=== PATIENT | male | born 1980 | race Two or more races ===

== ENCOUNTER 2017-02-04 08:22 | Day surgery (SDC) | payer OTHER ==
[~2017-02-04 08:22] MED LIST: Bupivacaine 0.25%/EPINEPHrine 1:200,000 10 ML SDV ONE
[2017-02-04] MEDS ORDERED: Lactated Ringers 1,000 ML IV SCH (09:00)
[2017-02-04] MEDS ORDERED: Propofol 200 MG/20 ML SDV ONE ×2 (09:20→09:21)
[2017-02-04] MEDS ORDERED: Lidocaine 2% 5 ML SDV ONE ×2 (09:20→09:21)
[2017-02-04] MEDS ORDERED: Midazolam 1 MG/ML 2 ML SDV ONE (09:21)
[2017-02-04] MEDS ORDERED: fentaNYL 100 MCG/2 ML SDV ONE (09:21)
[2017-02-04] MEDS ORDERED: Ondansetron 4 MG/2 ML SDV ONE (09:22)
[2017-02-04] MEDS ORDERED: Ketorolac 30 MG/ML SDV ONE (09:22)
--- NOTE | 2017-02-04 09:23 | PCM.PREANE ---
Preanesthetic Assessment - Anesthesia/Transfusion/Family Hx Anesthesia History: Prior Anesthesia Without Reaction Transfusion History: No Prior Transfusion(s) Intubation History: Unknown - Review of Systems General: No Symptoms Pulmonary: No Symptoms Cardiovascular: No Symptoms Gastrointestinal: No Symptoms Neurological: No Symptoms Other: Reports: None - Physical Assessment O2 Sat by Pulse Oximetry: 98 Respiratory Rate: 16 Vital Signs: Last Vital Signs Temp 97.9 F 02/04/17 08:50 Pulse 92 02/04/17 08:50 Resp 16 02/04/17 08:50 BP 133/87 02/04/17 08:50 Pulse Ox 98 02/04/17 08:50 Height: 5 ft 4 in Weight: 170 lb ASA Class: 1 Mental Status: Alert & Oriented x3 Airway Class: Mallampati = 1 Dentition: Reports: Normal Dentition, Bridge (3 tooth frontal upper) Thyro-Mental Finger Breadths: 3 Mouth Opening Finger Breadths: 3 (small mouth) ROM/Head Extension: Full Lungs: Clear to Auscultation, Normal Respiratory Effort Cardiovascular: Regular Rate, Regular Rhythm, No Murmurs - Allergies Allergies/Adverse Reactions: Allergies Allergy/AdvReac Type Severity Reaction Status Date / Time No Known Allergies Allergy Verified 02/03/17 14:44 - Blood Blood Available: No Product(s) Available: None - Acknowledgements Anesthesia Type Planned: General Anesthesia (LMA) Pt an Appropriate Candidate for the Planned Anesthesia: Yes Alternatives and Risks of Anesthesia Discussed w Pt/Guardian: Yes Pt/Guardian Understands and Agrees with Anesthesia Plan: Yes PreAnesthesia Questionnaire Other HEENT History: wears glasses Gastrointestinal History: Reports: None - Past Surgical History GI Surgical History: Reports: Hernia, Inguinal - SUBSTANCE USE Smoking Status *Q: Never Smoker Recreational Drug Use History: No - HOME MEDS Home Medications: Home Meds . [No Known Home Meds] 02/03/17 [History] - CURRENT (IN HOUSE) MEDS Current Meds: Current Medications Hydrocodone Bitart/Acetaminophen (Cypress 325-5 Mg) 1 tab PO Q4H PRN PRN Reason: Pain Bupivacaine HCl/Epinephrine Bitart (Marcaine 0.25%/Epinephrine 1:200,000) 10 ml INJECT ONETIME ONE Stop: 02/04/17 11:01 Cefazolin Sodium/Dextrose 2 gm (/ Premix) 50 mls @ 100 mls/hr IV ONETIME ONE Stop: 02/04/17 11:29 Lactated Ringer's (Ringers, Lactated) 1,000 mls @ 125 mls/hr IV ASDIRECTED [facility] Last Admin: 02/04/17 09:03 Dose: 125 mls/hr Discontinued Medications Bupivacaine HCl/Epinephrine Bitart (Marcaine 0.25%/Epinephrine 1:200,000) Confirm Administered Dose 10 ml .ROUTE .STK-MED ONE Stop: 02/04/17 07:24
[2017-02-04] MEDS ORDERED: ePHEDrine 50 MG/ML SDV ONE (10:26)
[2017-02-04] MEDS ORDERED: HYDROmorphone 2 MG/ML Syringe ONE (10:32)
[2017-02-04] MEDS ORDERED: Bupivacaine 0.25%/EPINEPHrine 1:200,000 10 ML SDV INJECT ONE (11:00)
[2017-02-04] MEDS ORDERED: ceFAZolin 2 GM in Premix Bag 1 BAG IV ONE (11:00)
[2017-02-04] MEDS ORDERED: Acetaminophen/HYDROcodone 325-5 MG Tab PO PRN (11:00)
[2017-02-04] MEDS ORDERED: fentaNYL 100 MCG/2 ML SDV IVPUSH PRN (11:28)
--- NOTE | 2017-02-04 11:54 | PCM.POSTAN ---
POST ANESTHESIA ASSESSMENT - MENTAL STATUS Mental Status: Alert, Oriented - RESPIRATORY Respiratory Status: Respiratory Rate WNL, Airway Patent, O2 Saturation Stable - CARDIOVASCULAR CV Status: Pulse Rate WNL, Blood Pressure Stable - GASTROINTESTINAL GI Status: No Symptoms - POST OP HYDRATION Hydration Status: Adequate & Stable
--- NOTE | 2017-02-04 11:58 | PCM48HPAN ---
Post Anesthesia Note - EVALUATION WITHIN 48HRS OF ANESTHETIC Vital Signs in Normal Range: Yes Patient Participated in Evaluation: Yes Respiratory Function Stable: Yes Airway Patent: Yes Cardiovascular Function Stable: Yes Hydration Status Stable: Yes Pain Control Satisfactory: Yes Nausea and Vomiting Control Satisfactory: Yes Mental Status Recovered: Yes
[2017-02-04 13:32] VITALS: BP 140/89
--- NOTE | 2017-02-07 09:53 | PCM.OPNOTE ---
- General Post-Op/Procedure Note Date of Surgery/Procedure: 02/04/17 Operative Procedure(s): open reduction plate fixation of right index finger middle phalanx fracture, with reconstruction of extensor tendon with tendon graft. Pre Op Diagnosis: right index finger middle phalanx fracture with extensor tendon laceration Post-Op Diagnosis: Same Anesthesia Technique: General LMA, Local Primary Surgeon: Amber Herron Hub Associate: Niurka Upton Complications: None Condition: Good
--- NOTE | 2017-02-07 11:34 | OR ---
SURGEON: JADYN CUMMINGS MD DATE OF PROCEDURE: 02/04/2017 PREOPERATIVE DIAGNOSIS: Right index finger middle phalanx fracture with extensor tendon laceration. POSTOPERATIVE DIAGNOSIS: Right index finger middle phalanx fracture with extensor tendon laceration. PROCEDURE: Open reduction and plate fixation of right index finger middle phalanx fracture with reconstruction of extensor tendon with tendon graft. RN DISCHARGE: CELY Moulton. ANESTHESIA: General LMA with local. INDICATIONS: Mr. Vaughn Mendes is a 36-year-old gentleman, who unfortunately sustained a crush injury to the distal phalanx and middle phalanx of the right index finger. Risks and benefits of reduction and possible pin fixation with possible open reduction and plate fixation of the right index finger middle phalanx fracture were discussed. He does also have a distal phalanx fracture, but this is inconsequential and does not need treatment at this time. Risks and benefits were discussed including, but not limited to, bleeding, infection, damage to underlying or overlying structures, possible need for future interventions and possible scarring. He was in agreement to proceed. PROCEDURE IN DETAIL: After informed consent was obtained and placed on the chart, the patient was brought to the operating theater and laid in the supine position. After adequate general LMA and local anesthesia was obtained, the area was prepped and draped, and a time-out was completed to confirm side and site. Once adequately prepped and draped, the arm was exsanguinated and the tourniquet was insufflated to 200 mmHg. Once adequately completed, attention was then paid to attempted reduction and pin fixation. Unfortunately, the two bony fragments were unable to be reduced closed and had to be opened. Attention was then paid to open with incision using a curvilinear incision on the dorsum of the finger. Dissection was carried down and the extensor tendon was not directly visualized this. It was appreciated to be disrupted of approximately 90% with only 10% holding it laterally. The destruction unfortunately has caused significant attrition of the tendon itself. This was retracted laterally and the two bony fragments of the middle phalanx were seen, visualized, and approximated and reduced appropriately. These were held in place with a 0.35 K-wire. Once adequately held in place, attention was then paid to plate fixation using a 1.7 mm [employer] hand plating set and a 6 hole T- plate was used and approximated over the fracture segment. Screw holes were drilled and screws of 5 mm in length were placed with locking screws used in the distal fragment. Direct visualization under fluoroscopy was appreciated slight rotation and thus the proximal plate was reset and re-screwed. Improved reduction was appreciated and 0.35 K-wire had been removed. Final films were taken and then the wound was copiously irrigated. Once irrigated, attention was then paid to closure and the extensor tendon was reapproximated over the plate itself. Given the small amount that was left intact and attrition of the tendon itself could not be reapproximated primarily, the proximal tendon graft over the proximal phalanx was taken and re-sent over the distal aspect of the plate. The terminal insertion was left intact and sutured to and then the area of the central slip was intact and again sutured to for eight tendon graft. The proximal donor site over the proximal phalanx was closed primarily. This was reapproximated using 4-0 nylon stitches in a [id number] fashion. Once the tendon had been reconstructed, attention was then paid to again copious irrigation and closure of the skin. The skin was closed using 5-0 nylon stitches in a horizontal mattress fashion. The patient was placed in a short- arm volar splint. He tolerated this well. All counts and needles were correct at the end the case. A 0.25% Marcaine with epinephrine was used in a block for pain control. FOLLOWUP INSTRUCTIONS: The patient will see us in clinic in 10 to 14 days or sooner if any problems, questions, or concerns. He is to leave the short arm splint on until that time. All questions answered. A prescription for pain medication provided. MINERVA / CHARAN /[id number]
--- NOTE | 2017-03-29 10:58 | CR ---
EXAMINATION: Right index finger HISTORY: ORIF COMPARISON: 01/29/2015 TECHNIQUE: 5 fluoroscopic images provided FINDINGS/IMPRESSION: Operative control films demonstrate screw and plate fixation of a fracture of th e distal aspect of the middle second phalanx.
== END 2017-02-04 13:20 | disposition home or self-care (01) ==
LOC: MW.SDS 08:22
PROVIDERS: ATTEND Plastic Surgery
DX: S62.630A Displaced fracture of distal phalanx of right index finger, initial encounter for closed fracture (principal); S66.320A Laceration of extensor muscle, fascia and tendon of right index finger at wrist and hand level, initial encounter; X58.XXXA Exposure to other specified factors, initial encounter; Z79.899 Other long term (current) drug therapy; Z87.891 Personal history of nicotine dependence
CPT/HCPCS: 26412; 26735; C1713; J1170; J1885; J2250; J2405; J3010; J7120; 01830; 76000; 76000-26; J2704